=== PATIENT | female | born 2000 | race Caucasian/White ===

== ENCOUNTER 2021-07-23 01:41 | Emergency (ER) | payer SELFPAY ==
[~2021-07-23] VITALS: Ht 162.6 cm; Wt 136.0 kg
[2021-07-23] MEDS ORDERED: ACETAMINOPHEN 325MG TABLET PO ONE (02:30)
[2021-07-23 03:25] VITALS: BP 144/72
== END 2021-07-23 03:33 | disposition home or self-care (01) ==
LOC: ER 02:19
DX: R07.9 Chest pain, unspecified (principal); I47.1 Supraventricular tachycardia
CPT/HCPCS: 71045; 93005; 99283